=== PATIENT | male | born 1985 | race Caucasian/White ===

== ENCOUNTER 2017-02-08 03:26 | Inpatient (IN) | payer MEDICAID ==
[~2017-02-08] VITALS: Ht 162.6 cm; Wt 80.5 kg
[2017-02-08] VITALS (15 sets, daily range): BP systolic 118–149; BP diastolic 61–84; PULSE 64–98; RESP 13–32; TEMP 98.9; Ht 162.6 cm; Wt 80.5 kg
[2017-02-08] MEDS ORDERED: FAMOTIDINE 20 MG INJ IV STA (04:17)
[2017-02-08] MEDS ORDERED: ONDANSETRON 4 MG INJ IV STA (04:17)
[2017-02-08] MEDS ORDERED: KETOROLAC 30 MG INJ IV STA (04:17)
[2017-02-08 04:57] LABS: ADD SCAN DIFF NO
[2017-02-08 05:00] LABS: ADD UMIC NO; URINE BILIRUBIN (Dip) NEGATIVE (NEGATIVE); URINE BLOOD (Dip) NEGATIVE (NEGATIVE); URINE COLOR LT. YELLOW (YELLOW); URINE GLUCOSE (Dip) NEGATIVE (NEGATIVE); URINE KETONES (Dip) NEGATIVE (NEGATIVE); URINE LEUKOCYTE ESTERASE (Dip) NEGATIVE (NEGATIVE); URINE NITRITE (Dip) NEGATIVE (NEGATIVE); URINE TOTAL PROTEIN (Dip) NEGATIVE (NEGATIVE); URINE UROBILINOGEN (Dip) 0.2 E.U./dL (0.1-1.0)
[2017-02-08 05:03] LABS: BASOPHIL # 0.1 10^3/ul (0.0-0.1); BASOPHILS % 0.3 % (0.0-2.0); EOSINOPHILS # 0.1 10^3/ul (0.0-0.5); EOSINOPHILS % 0.6 % (0.0-7.0); HEMATOCRIT 45.9 % (42.0-52.0); HEMOGLOBIN 15.8 g/dl (14.0-18.0); LYMPHOCYTES # 2.7 10^3/ul (0.8-2.9); LYMPHOCYTES % 16.6 % (15.0-51.0); MEAN CORPUSCULAR HEMOGLOBIN 29.9 pg (29.0-33.0); MEAN CORPUSCULAR HGB CONC 34.4 g/dl (32.0-37.0); MEAN CORPUSCULAR VOLUME 86.8 fl (82.0-101.0); MEAN PLATELET VOLUME 11.9 fl (7.4-10.4); MONOCYTE # 0.9 10^3/ul (0.3-0.9); MONOCYTES % 5.8 % (0.0-11.0); NEUTROPHIL # 12.2 10^3/ul (1.6-7.5); NEUTROPHILS % 76.3 % (39.0-77.0); PLATELET COUNT 250 10^3/UL (140-415); RED BLOOD COUNT 5.29 10^6/ul (4.70-6.10); RED CELL DISTRIBUTION WIDTH 12.3 % (11.5-14.5)
--- NOTE | 2017-02-08 05:07 | RADRPT ---
PROCEDURE: CT Abdomen and pelvis without contrast. CLINICAL INDICATION: Abdominal pain. TECHNIQUE: CT scan of the abdomen and pelvis was performed on a multi-detector high-resolution CT scanner. Contiguous axial images were obtained from the lung bases to the ischial tuberosities wit hout intravenous contrast. Coronal and sagittal reformatted images were also obtained. Images were reviewed on the PACS workstation. One or more of the following dose reduction techniques were used: - Automated exposure control. - Adjustment of the mA and/or kV according to patient size. - Use of iterative reconstruction technique. Exam CTD/vol = 14.58 mGy. Total exam DLP = 867.43 mGy-cm. COMPARISON: None. FINDINGS: Evaluation of the lung bases demonstrates no pleural or parenchymal disease. Abdomen: The liver is normal in size and diffusely low in attenuation consistent with fatty infiltr ation. There is no focal mass or dilatation of the biliary tree. The gallbladder is not distended. The spleen, pancreas and bilateral adrenal glands are within normal limits. Bilateral kidneys are normal in size with no contour deforming mass identified. There is no radiopaque renal or ureteral calculus identified. There is no hydronephrosis or hydroureter. There is no retroperitoneal adeno yuri. The abdominal aorta is of normal caliber. There is a distended appendix extending medial to the cecum measuring up to 13 mm in diameter with m ild adjacent stranding. There is no bowel obstruction or free air. There is no diverticulosis or d iverticulitis. There is no ascites. Pelvis: The bladder is unremarkable. There is mild pelvic free fluid. The prostate and seminal ve sicles are within normal limits. There is no significant pelvic adenopathy. Evaluation of the osseous structures demonstrates no suspicious lytic or blastic lesion. IMPRESSION: Acute appendicitis. Mild pelvic free fluid. Fatty infiltration of the liver. A call report was made to Dr. Ayoub at 05:04 a.m. .Donovan Saenz MD, MD Date Time Electronically viewed and signed by .Donovan Saenz MD, MD on 02/08/2017 05:06 .T/
[2017-02-08] MEDS ORDERED: SOD CHLORIDE 0.9% 1,000 ML IV SCH (05:10)
[2017-02-08] MEDS ORDERED: SOD CHLORIDE 0.9% 1,000 ML IV STA (05:16)
--- NOTE | 2017-02-08 05:16 | ERA ---
ER Documentation Chief Complaint Date/Time DATE: 02/08/17 TIME: 05:13 Chief Complaint LEFT ABD PAIN STARTED YESTERDAY, VOMITING X 2, DIARRHEA X 1. DENIES FEVER. HPI This is a 31-year-old male who presents to the emergency room for evaluation of abdominal pain. The patient localizes the abdominal pain to the left portion of his abdomen and stated that started yesterday. The patient states that he has had nausea and has vomited twice. He has had one episode of nonbloody diarrhea and came to the emergency room for evaluation. Patient states that his left-sided abdominal pain does radiate to the flank and he states that he came to the emergency room due to the pain increase. ROS All systems reviewed and are negative except as per history of present illness. PMhx/Soc Medical and Surgical Hx: pt denies Medical Hx, pt denies Surgical Hx Hx Substance Use: No Hx Tobacco Use: Yes Smoking Status: Current some day smoker Physical Exam Vitals Vital Signs Date Time Temp Pulse Resp B/P Pulse Ox O2 Delivery O2 Flow Rate FiO2 02/08/17 03:30 98.2 69 18 149/73 95 Physical Exam INITIAL VITAL SIGNS: Reviewed by me GENERAL: The patient is well developed and appropriate for usual state of health in no apparent distress HEENT: Pupils equal, round, and reactive to light. EOMI. There is no scleral icterus. NECK: C-spine is soft and supple, there is no meningismus. There is no cervical lymphadenopathy. LUNGS: Clear to auscultation bilaterally. There are no rales, wheezes or rhonchi. HEART: Regular rate and rhythm, no murmurs, clicks, rubs or gallops. ABDOMEN: Positive McBurney point tenderness, positive Rovsing sign, left-sided CVAT,. There are bowel sounds in all four quadrants. No rebound or guarding. EXTREMITIES: There is no peripheral cyanosis or edema. No focal swelling or erythema. NEUROLOGICAL: The patient moves all four extremities with 5/5 strength. Cranial nerves II - XII are intact. Normal gait. Alert and oriented SKIN: There is no apparent rash or petechiae. HEME/LYMPHATIC: There is no evidence of excessive bruising or lymphedema. PSYCHIATRIC: The patient does not appear anxious or depressed. Result Diagram: 02/08/17 0438 Results 24 hrs Laboratory Tests Test 02/08/17 04:38 02/08/17 04:40 White Blood Count 16.010^3/ul Red Blood Count 5.2910^6/ul Hemoglobin 15.8g/dl Hematocrit 45.9% Mean Corpuscular Volume 86.8fl Mean Corpuscular Hemoglobin 29.9pg Mean Corpuscular Hemoglobin Concent 34.4g/dl Red Cell Distribution Width 12.3% Platelet Count 27372^3/UL Mean Platelet Volume 11.9fl Neutrophils % 76.3% Lymphocytes % 16.6% Monocytes % 5.8% Eosinophils % 0.6% Basophils % 0.3% Nucleated Red Blood Cells % 0.0/100WBC Neutrophils # 12.210^3/ul Lymphocytes # 2.710^3/ul Monocytes # 0.910^3/ul Eosinophils # 0.110^3/ul Basophils # 0.110^3/ul Nucleated Red Blood Cells # 0.010^3/ul Urine Color LT. YELLOW Urine Clarity CLEAR Urine pH 8.5 Urine Specific Boykins 1.010 Urine Ketones NEGATIVE Urine Nitrite NEGATIVE Urine Bilirubin NEGATIVE Urine Urobilinogen 0.2 E.U./dL Urine Leukocyte Esterase NEGATIVE Urine Hemoglobin NEGATIVE Urine Glucose NEGATIVE% Urine Total Protein NEGATIVE Current Medications Medications (Trade) Dose Ordered Sig/Neil Route PRN Reason Start Time Stop Time Status Last Admin Dose Admin Ondansetron HCl (Zofran Inj) 4 mg ONCE STAT IV 02/08/17 04:17 02/08/17 04:19 DC 02/08/17 04:57 Famotidine (Pepcid Iv) 20 mg ONCE STAT IV 02/08/17 04:17 02/08/17 04:19 DC 02/08/17 04:57 Ketorolac Tromethamine 30 mg 30 mg ONCE STAT IV 02/08/17 04:17 02/08/17 04:19 DC 02/08/17 04:57 Sodium Chloride (NS) 1,000 ml @ 80 mls/hr [id number] IV 02/08/17 05:10 02/08/17 17:39 Ondansetron HCl (Zofran Inj) 4 mg BRIDGE ORDER PRN IV NAUSEA AND/OR VOMITING 02/08/17 05:30 02/09/17 05:29 Acetaminophen (Tylenol Tab) 650 mg ER BRIDGE PRN PO MILD PAIN/FEVER 02/08/17 05:30 02/09/17 05:29 Procedures/MDM CT abdomen pelvis without: Acute appendicitis. Mild pelvic free fluid. Fatty infiltration of the liver. This 31-year-old male presents to the emergency room for evaluation of abdominal pain. When I evaluated him he was afebrile. He did have some right lower quadrant tenderness however he had left lower quadrant tenderness and left -sided flank pain as well. Lab work was obtained which showed a leukocytosis. A CT of the abdomen and pelvis was obtained which does show acute appendicitis. This patient has not had any previous surgeries. And the patient's pain is controlled with Toradol in the emergency room. His nausea is also controlled with Zofran and Pepcid. This patient will be placed in for admission at this time. I have contacted our on-call general surgeon, Dr. Simpson who agrees to evaluate this patient. [facility] the care of Dr. Miramontes as he is hemodynamically stable. This patient will also be kept n.p.o. at this time. And was given 2 L of IV fluids Critical Care: Time: 35 minutes Treatments/Evaluations: Close monitoring and treatment of unstable vital signs, cardiorespiratory, and neurologic status, while maintaining tight balance of fluid, respiratory, and cardiac interventions. Departure Diagnosis: Primary Impression: Acute appendicitis Additional Impressions: Abdominal pain Nausea & vomiting Condition: YAQUELIN Roach DO Feb 08, 2017 05:16
[2017-02-08 05:18] LABS: ALBUMIN 5.1 g/dl (3.3-4.9); ALBUMIN/GLOBULIN RATIO 1.75; BILIRUBIN,INDIRECT 0.5 mg/dl (0-1.1); BILIRUBIN,TOTAL 0.5 mg/dl (0.2-1.3); CALCIUM 9.4 mg/dl (8.4-10.2); CREATININE 0.69 mg/dl (0.61-1.24); POTASSIUM 4.4 mmol/L (3.5-5.1)
--- NOTE | 2017-02-08 05:21 | HP ---
Date/Time of Note Date/Time of Note DATE: 02/08/17 TIME: 05:21 Assessment/Plan VTE Prophylaxis VTE Prophylaxis Intervention: SCD's Assessment/Plan Chief Complaint/Hosp Course This is a 31-year-old male being admitted to the [facility] floor for: #1 acute appendicitis: CT scan positive for acute appendicitis. Will keep patient n.p.o. IV fluid hydration. Zofran for nausea. IV pain control with morphine. Will provide surgical antibiotic prophylaxis with Unasyn IV 1 dose. General surgery has been consulted by the ED patient likely will go to the OR later today. #2 obesity: Patient has family history of diabetes. We will obtain lipid profile TSH and hemoglobin A1c. #3 fatty liver: CT scan shows fatty infiltration of the liver. Normal LFTs. Follow-up as an outpatient. #4 DVT and GI prophylaxis: SCDs, Protonix Problems: HPI/ROS Admit Date/Time Admit Date/Time 02/08/17 Hx of Present Illness Chief complaint: Abdominal pain This is a 31-year-old male who presents to the emergency room for evaluation of abdominal pain. The patient localizes the abdominal pain to the right lower quadrant of his abdomen and stated that started yesterday. The patient states that he has had nausea and has vomited twice. He has had one episode of nonbloody diarrhea and came to the emergency room for evaluation. Patient states he also has experienced pain on the left side which radiated to the right as well as the back as the pain got worse that is why he came to the ER. Denies any chest pain or shortness of breath Allergies: NKDA Medications: None ROS Const: As per HPI Eyes : No pain discharge or redness or change in visual acuity ENT: No pain, sore throat, congestion, congestion, dysphagia or discharge Respiratory: No shortness of breath, cough, sputum, wheezing, or pleuritic pain Cardiovascular: No chest pain, palpitation, PND, or edema GI : As per HPI Genitourinary: No dysuria, hematuria, flank pain , discharge or CVA tenderness Musculoskeletal: No joint pain, back pain, neck pain, restricted range of motion in neck or joints Skin: No rash, bruising or hives Neuro: No headache, dizziness, syncope, seizure, focal weakness Endocrine: No polyuria, polydipsia, temperature intolerance Psych: No hallucination, depression, anxiety or suicidal ideation PMH/Family/Social Past Medical History Medical History: no pertinent history Past Surgical History Past Surgical Hx: no surgical history Family History Significant Family History: diabetes Social History Alcohol Use: occasionally (2 cigarettes per week) Smoking Status: Current some day smoker Drug Use: none Exam/Review of Systems Vital Signs Vitals Vital Signs Date Time Temp Pulse Resp B/P Pulse Ox O2 Delivery O2 Flow Rate FiO2 02/08/17 03:30 98.2 69 18 149/73 95 Exam Exam General: Patient is well-developed well-nourished The patient is alert oriented -3 lying comfortably in bed. HEENT: Atraumatic, normocephalic. The pupils are equal, round and reactive. Extraocular motor are intact Neck: Supple with full range of motion. No rigidity or meningismus Chest: Nontender Lungs: Clear to auscultation bilaterally no crackles rales or wheezing Heart: Normal S1-S2, Regular rhythm and rate. No murmur, S3, or S4 Abdomen: Soft, tender to palpation of the right lower quadrant, positive rebound tenderness the left lower quadrant, positive bowel sounds. Extremities: Normal to inspection, no edema no cyanosis Neurologic: Normal mental status, speech normal, cranial nerves II through XII are intact, motor and sensory are intact, no focal weakness Additional Comments PROCEDURE: CT Abdomen and pelvis without contrast. CLINICAL INDICATION: Abdominal pain. TECHNIQUE: CT scan of the abdomen and pelvis was performed on a multi- detector high-resolution CT scanner. Contiguous axial images were obtained from the lung bases to the ischial tuberosities without intravenous contrast. Coronal and sagittal reformatted images were also obtained. Images were reviewed on the PACS workstation. One or more of the following dose reduction techniques were used: - Automated exposure control. - Adjustment of the mA and/or kV according to patient size. - Use of iterative reconstruction technique. Exam CTD/vol = 14.58 mGy. Total exam DLP = 867.43 mGy-cm. COMPARISON: None. FINDINGS: Evaluation of the lung bases demonstrates no pleural or parenchymal disease. Abdomen: The liver is normal in size and diffusely low in attenuation consistent with fatty infiltration. There is no focal mass or dilatation of the biliary tree. The gallbladder is not distended. The spleen, pancreas and bilateral adrenal glands are within normal limits. Bilateral kidneys are normal in size with no contour deforming mass identified. There is no radiopaque renal or ureteral calculus identified. There is no hydronephrosis or hydroureter. There is no retroperitoneal adenopathy. The abdominal aorta is of normal caliber. There is a distended appendix extending medial to the cecum measuring up to 13 mm in diameter with mild adjacent stranding. There is no bowel obstruction or free air. There is no diverticulosis or diverticulitis. There is no ascites. Pelvis: The bladder is unremarkable. There is mild pelvic free fluid. The prostate and seminal vesicles are within normal limits. There is no significant pelvic adenopathy. Evaluation of the osseous structures demonstrates no suspicious lytic or blastic lesion. IMPRESSION: Acute appendicitis. Mild pelvic free fluid. Fatty infiltration of the liver. A call report was made to Dr. Pinon at 05:04 a.m. .Donovan Saenz MD, Date Time Electronically viewed and signed by .Donovan Saenz MD, on 02/08/2017 05:06 .T/ CC: YAQUELIN PINON DO Labs Result Diagram: 02/08/17 0438 Medications Medications Current Medications Sodium Chloride (NS) 1,000 ml @ 80 mls/hr [id number] IV ; Start 02/08/17 at 05:10; Stop 02/08/17 at 17:39 BECKY OLSON Feb 08, 2017 05:21
[2017-02-08] MEDS ORDERED: ONDANSETRON 4 MG INJ IV PRN ×4 (05:30→13:00)
[2017-02-08] MEDS ORDERED: ACETAMINOPHEN 325 MG TAB PO PRN ×2 (05:30→12:30)
--- NOTE | 2017-02-08 06:46 | CONS ---
DATE OF ADMISSION: 02/08/2017 DATE OF CONSULTATION: 02/08/2017 HISTORY OF PRESENT ILLNESS: Mr. Bah is a 31-year-old male who had acute onset of genera lized abdominal pain beginning yesterday morning, localizing to the right lower quadrant. He thought he possibly had an ulcer disease, as he has had an ulcer in the past. He had nausea and 1 episode of emesis. Due to his persistent symptoms and localization, he presented to the ER. His workup was consistent with acute appendicitis. PAST MEDICAL HISTORY: Noncontributory. PAST SURGICAL HISTORY: None. MEDICATIONS: None. ALLERGIES: NO KNOWN DRUG ALLERGIES. SOCIAL HISTORY: Denies drinking, drug use or smoking. PHYSICAL EXAMINATION: GENERAL: He is a well-developed, well-nourished male, in no apparent distress. VITAL SIGNS: Temperature 99, pulse 55, BP 133/87. CHEST: Clear to auscultation bilaterally. HEART: Regular rhythm. ABDOMEN: Soft, nondistended, but significant right lower quadrant tenderness. LABORATORY: Reveal a white count of 16, hematocrit of 46 and platelets of 250. Sodium 142, potassi um 4.4, chloride 105, CO2 27, BUN 12, creatinine 0.7, glucose of 123. CT reveals acute appendicitis. ASSESSMENT AND PLAN: Ms. Bah is a 31-year-old male with acute appendicitis. I discusse d laparoscopic, possible open appendectomy with the patient. All benefits, risks, and alternatives were discussed in detail. Questions were answered and the patient elected to proceed. Dictated By: RONALD LARA/NTS Conf#: [id number] DID#: [id number]
[2017-02-08] MEDS ORDERED: NACL 0.9% 3 ML SYG IV SCH (07:00)
[2017-02-08] MEDS ORDERED: morphine 2 MG INJ IV PRN (07:00)
[2017-02-08] MEDS ORDERED: ACETAMINOPHEN 650 MG SUPP PR PRN (07:00)
[2017-02-08] MEDS ORDERED: AMPICILLIN/SULB 3 GM/NS (PMX) 100 ML IVPB ONE (07:00)
[2017-02-08] MEDS: SOD CHLORIDE 0.9% 1,000 ML IV SCH ×2 (07:40→19:59)
[2017-02-08] MEDS ORDERED: LIDOCAINE 1% (MPF) 30 ML INJ ONE (12:17)
[2017-02-08] MEDS ORDERED: BUPIVACAINE 0.25%/EPI (SDV) 30 ML INJ ONE (12:17)
[2017-02-08] MEDS ORDERED: PROPOFOL 20 ML ONE (12:25)
[2017-02-08] MEDS ORDERED: SUCCINYLCHOLINE CHLORIDE 100 MG/5 ML SYG IV ONE (12:25)
[2017-02-08] MEDS ORDERED: ROCURONIUM 50 MG INJ ONE (12:25)
[2017-02-08] MEDS ORDERED: MEPERIDINE 100 MG INJ ONE (12:25)
[2017-02-08] MEDS ORDERED: LIDOCAINE 2% (SDV) 5 ML INJ ONE (12:25)
[2017-02-08] MEDS ORDERED: NEOSTIGMINE 3 MG/3 ML SYRINGE ONE ×2 (12:25→12:52)
[2017-02-08] MEDS ORDERED: GLYCOPYRROLATE 0.4 MG INJ ONE ×2 (12:25→12:52)
[2017-02-08] MEDS ORDERED: HYDROmorphONE 1 MG/ML SYG IV PRN (12:30)
[2017-02-08] MEDS ORDERED: HYDROCODONE/APAP (5/325) TAB PO PRN (12:30)
[2017-02-08] MEDS ORDERED: MEPERIDINE 25 MG INJ IV PRN (13:00)
[2017-02-08] MEDS ORDERED: MIDAZOLAM 1 MG/ML 2 ML INJ IV PRN (13:00)
[2017-02-08] MEDS ORDERED: EPHEDrine SULFATE 50 MG/5 ML SYG IV PRN (13:00)
[2017-02-08] MEDS ORDERED: LABETALOL HCL 20MG INJ IV PRN (13:00)
[2017-02-08] MEDS ORDERED: morphine (1 MG/ML) 10ML SYRINGE IV PRN ×2 (13:00)
[2017-02-08] MEDS ORDERED: FENTAnyl 50 MCG/ML VIAL IV PRN ×2 (13:00)
[2017-02-08] MEDS ORDERED: METOCLOPRAMIDE 10 MG INJ IV PRN (13:00)
[2017-02-08] MEDS ORDERED: DIPHENHYDRAMINE 50 MG INJ IV PRN (13:00)
[2017-02-08] MEDS ORDERED: hydrALAzine 20 MG INJ IV PRN (13:00)
--- NOTE | 2017-02-08 13:39 | OPR ---
DATE OF OPERATION: 02/08/2017 PREOPERATIVE DIAGNOSIS: Acute appendicitis. POSTOPERATIVE DIAGNOSIS: Acute appendicitis. PROCEDURE: Laparoscopic appendectomy. SURGEON: Ronald Simpson MD MAPPING SPECIALIST: None. ANESTHESIA: General endotracheal. ANESTHESIOLOGIST: Dr. Ham ESTIMATED BLOOD LOSS: Minimal. COMPLICATIONS: None. SPECIMENS: Appendix. FINDINGS: Acute appendicitis. INDICATIONS: Mr. Bah is a 31-year-old male who had acute onset of generalized abdominal pain, localizing to his right lower quadrant. He presented to the ER at [facility]. His workup was consistent with acute appendicitis. I was called for consultation. I discussed laparoscopic, possible open, appendectomy with the patient. All benefits, risks, alternatives were discussed in detail. Questions were answered. The patient elected to proceed. DESCRIPTION OF PROCEDURE: The patient was brought to the operating room and placed supine on the ta ble. After preoperative antibiotics and SCDs were placed, the patient was intubated. The abdomen w as cleaned, prepped and draped in sterile fashion. All incisions were infiltrated with 1% lidocaine with epinephrine and 0.5% Marcaine prior to the incision. A 5-mm incision was made in the umbilicu s. Using a 5-mm laparoscope containing trocar, the abdomen was entered under direct vision and insu fflated to 15 mmHg of CO2. The following trocars were then placed under direct vision: Right lower quadrant 5-mm and a left lower quadrant 12-mm. Emanating from the cecum was an obvious acute appen dicitis. I was able to lift up the appendix and make a rent in the mesentery at the base of the arnaldo endix and then divide the cecum at the base of the appendix with a 35-mm Endo linear cutter white lo ad. The appendiceal mesentery was then divided with a 35-mm Endo linear cutter white load. The arnaldo endix was placed in an EndoCatch bag and removed from the 12-mm trocar site. I then irrigated out t he right lower quadrant and pelvis until the effluent was clear. I visualized my staple lines and t hey were hemostatic. At this point, I desufflated the abdomen and removed all trocars. The fascia of the 12-mm trocar site was closed with 0 Vicryl. The skin incisions were all closed with 4-0 Duplin cryl, Mastisol and Steri-Strips. The patient tolerated the procedure well, was extubated in the OR, and transferred to the recovery room in stable condition. Dictated By: RONALD LARA/JANNY Conf#: [id number] DID#: [id number]
[2017-02-08] MEDS: D5-NS + KCL 20 MEQ 1,000 ML IV SCH ×2 (15:21→22:07)
[2017-02-08] MEDS: KETOROLAC 15 MG INJ IV SCH ×3 (15:22→23:45)
[2017-02-08] MEDS: PIPER-TAZO 3.375 GM IV (PMX) 100 ML IVPB SCH ×2 (17:48→23:43)
[2017-02-09] MEDS: D5-NS + KCL 20 MEQ 1,000 ML IV SCH (00:48)
[2017-02-09 04:19] VITALS: BP 125/74; PULSE 70; RESP 18
[2017-02-09 05:20] LABS: ADD SCAN DIFF NO
[2017-02-09 05:27] LABS: BASOPHILS % 0.4 % (0.0-2.0); EOSINOPHILS # 0.1 10^3/ul (0.0-0.5); EOSINOPHILS % 0.9 % (0.0-7.0); HEMOGLOBIN 13.7 g/dl (14.0-18.0); LYMPHOCYTES # 2.5 10^3/ul (0.8-2.9); LYMPHOCYTES % 25.2 % (15.0-51.0); MEAN CORPUSCULAR HGB CONC 33.4 g/dl (32.0-37.0); MEAN CORPUSCULAR VOLUME 89.7 fl (82.0-101.0); MEAN PLATELET VOLUME 12.1 fl (7.4-10.4); MONOCYTE # 0.9 10^3/ul (0.3-0.9); MONOCYTES % 9.2 % (0.0-11.0); NEUTROPHIL # 6.3 10^3/ul (1.6-7.5); PLATELET COUNT 202 10^3/UL (140-415); RED BLOOD COUNT 4.57 10^6/ul (4.70-6.10); RED CELL DISTRIBUTION WIDTH 12.3 % (11.5-14.5); WHITE BLOOD COUNT 9.8 10^3/ul (4.8-10.8)
[2017-02-09] MEDS: KETOROLAC 15 MG INJ IV SCH (05:37)
[2017-02-09] MEDS: PIPER-TAZO 3.375 GM IV (PMX) 100 ML IVPB SCH (05:37)
[2017-02-09 05:48] LABS: ALBUMIN 4.1 g/dl (3.3-4.9); ALBUMIN/GLOBULIN RATIO 1.7; BILIRUBIN,INDIRECT 0.6 mg/dl (0-1.1); BILIRUBIN,TOTAL 0.6 mg/dl (0.2-1.3); CALCIUM 8.5 mg/dl (8.4-10.2); CREATININE 0.89 mg/dl (0.61-1.24); MAGNESIUM 2.2 mg/dl (1.7-2.5); POTASSIUM 4.5 mmol/L (3.5-5.1); TOTAL PROTEIN 6.5 g/dl (6.1-8.1)
[2017-02-09] MEDS ORDERED: PANTOPRAZOLE 40 MG INJ IV SCH (06:00)
[2017-02-09 06:02] LABS: CHOL/HDL RATIO 5.1 RATIO
[2017-02-09 06:29] LABS: THYROID STIMULATING HORMONE 0.999 MIU/L (0.465-4.680)
[2017-02-09] MEDS ORDERED: ENOXAPARIN 40 MG/0.4 ML SYG SC SCH (07:00)
--- NOTE | 2017-02-09 07:27 | PDOCDIS ---
Discharge Instructions DIAGNOSIS Discharge Diagnosis: acute appendicitis; S/P lap appy CONDITION Patient Condition: Fair HOME CARE INSTRUCTIONS: Special Diet: clear liquid ACTIVITY: Activity Restrictions: Slowly Increase Activity Do not operate Power Tool Avoid Heavy Housework FOLLOW UP/APPOINTMENTS Appointments DR. Simpson in 2 weeks EDUARD GROVE MD Feb 09, 2017 07:27
[2017-02-09 07:47] VITALS: BP 107/62; RESP 19
--- NOTE | 2017-02-09 08:02 | PN ---
DATE: 02/09/2017 SUBJECTIVE: Mr. Bah is postop day 1 from a laparoscopic appendectomy. The patient is w ithout complaints. He is tolerating his diet well. OBJECTIVE: VITAL SIGNS: He is afebrile. Vital signs stable. ABDOMEN: Soft, nontender, nondistended. SKIN: His wound is clean, dry, and intact. LABORATORY DATA: White count is 10 today from 16. ASSESSMENT AND PLAN: Mr. Bah is a 31-year-old male status post laparoscopic appendectom y. He is doing well and is stable for discharge today. Dictated By: RONALD LARA/NTS Conf#: [id number] DID#: [id number]
--- NOTE | 2017-02-09 08:48 | DS ---
DATE OF ADMISSION: 02/08/2017 DATE OF DISCHARGE: 02/09/2017 DISCHARGE DIAGNOSIS: Acute appendicitis without perforation. SECONDARY DIAGNOSES: Include fatty infiltration of liver and obesity. PROCEDURES DURING THIS HOSPITALIZATION: CT scan of the abdomen and pelvis and laparoscopic appendec eddie on 02/08/[address] Ronald Simpson. HOSPITAL COURSE: This was the first [facility] admission for this charming 31-yea r-old gentleman who came in with abdominal pain consistent with acute appendicitis. His evaluation in the emergency room was consistent with that, and he was seen in surgical consultat ion. He was taken essentially directly to the operating room and had a successful appendectomy. He is now taking clear liquids without issue and is able to ambulate. He was treated with a course of antibiotics. He has now improved to the point that he is stable for discharge. He will be followe d up in the office by Dr. Simpson in 2 weeks. Please note, his white count came from 16 down to 10 a fter the surgery and with the antibiotics. He has no known communicable diseases. He is not a haza rd to himself or others. His rehabilitation potential is good. His only medication he will be norberto g out with is hydrocodone on a p.r.n. basis by Dr. Simpson in a very limited quantity. Dictated By: EDUARD GROVE MD JR/NTS Conf#: [id number] DID#: [id number] CC: RONALD SIMPSON MD;*EndCC*
[2017-02-09] MEDS: SOD CHLORIDE 0.9% 1,000 ML IV SCH (09:19)
[2017-02-10] MEDS ORDERED: IBUPROFEN 600 MG TAB PO PRN (12:00)
== END 2017-02-09 11:30 | disposition home or self-care (01) | DRG 343 ==
LOC: E/R 03:26 → SDS 09:00 → MS1 14:50 → SDS 14:51
PROVIDERS: ADMIT Family Medicine; ATTEND Family Medicine
PROC: 0DTJ4ZZ Resection of Appendix, Percutaneous Endoscopic Approach (ICD-10-PCS; principal; 2017-02-08 12:30)
DX: K35.80 Unspecified acute appendicitis (principal); K76.0 Fatty (change of) liver, not elsewhere classified; E66.9 Obesity, unspecified; Z68.30 Body mass index [BMI] 30.0-30.9, adult
CPT/HCPCS: 36415; 74176; 80053; 80061; 81003; 83036; 83690; 83735; 84439; 84443; 85025; 88304; 96374; 96375; C9113; J0295; J1650; J1885; J2175; J2270; J2405; J2543; J2710; J3010; J3480; J7030; J7999